=== PATIENT | female | born 2000 | race African-American/Black ===

== ENCOUNTER 2023-03-11 01:22 | Day surgery (SDC) | payer OTHER, SELFPAY ==
[2023-03-11] VITALS (32 sets, daily range): BP systolic 58–126; BP diastolic 43–76; PULSE 73–128; RESP 12–22; TEMP 36.3–36.9; O2SAT 89–100; BMI 20.7
--- NOTE | 2023-03-11 01:34 | ED.GENADULT ---
HPI - General Adult General Chief complaint: Abdominal Pain Stated complaint: right side abdominal pain Time Seen by Provider: 03/11/23 01:25 History of Present Illness HPI narrative: Rlowerabd pain. started 2200, nausea. painful to stand up straight. sharp , feels hot. denies urinary or BM problems. no hx surgeries. 22-year-old young woman presenting to the emergency department with complaint of rather sudden onset of right lower abdominal area pain, sharp, beginning 2-3 hours ago when getting ready for bed. She recalls that maybe she has had a similar pain before but not nearly as bad. Initially nauseated it feels better now. She tried to have a bowel movement as if that might relieve it but no change. No dysuria frequency or urgency though admittedly has not tried to urinate since onset of this pain. No history of abdominal surgeries. No fever. She would anticipate menses in a little over a week having had her last this last month. She is wondering how she can feel better noting that she has class in the morning. Related Data Home Medications Medication Instructions Recorded Confirmed No Known Home Medications 03/11/23 03/11/23 Allergies Allergy/AdvReac Type Severity Reaction Status Date / Time No Known Drug Allergies Allergy Verified 03/11/23 01:32 Review of Systems Status of ROS: Reports: 6 or more systems reviewed and unremarkable except as noted in History and below [facility] Medical History (Updated 03/11/23 @ 05:50 by Merlin Maritns MD) No significant past medical history Surgical History (Updated 03/11/23 @ 03:32 by Felix Marr RN) No significant past surgical history Social History Smoking Status: Never smoker Second hand tobacco smoke exposure: No How often do you have a drink containing alcohol: never How often do you have six or more drinks on one occasion: Never AUDIT-C Alcohol total score: 0 Non-prescribed substance use: denies use Exam Narrative: Exam Narrative: Scrape pleasant. Quiet. Clearly uncomfortable. Was observed to be walking hunched over into the emergency department. She is lying semi recumbent in the bed tipped over onto her right side somewhat. Little tremulous in apparent discomfort. Breathing easily otherwise however. Lungs appear to be clear. Heart in an elevated rate regular rhythm. Abdomen with normoactive bowel sounds is soft. She is tender across the pelvis most exquisitely in the right adnexal area not McBurney's. Also tender in the left and suprapubic area. Well-perfused peripherally without edema. Const: Vital Signs, click to edit/add: Vital Signs - 24 hr 03/11/23 10:05 03/11/23 13:56 03/11/23 14:05 Temperature 97.6 F Pulse Rate 89 128 H 105 H Pulse Rate [Left P ulse Oximeter] Respiratory Rate 12 20 22 Blood Pressure 102/65 112/50 L 109/62 Blood Pressure [Ri ght Arm] Pulse Oximetry 99 94 99 Oxygen Delivery Me thod Room Air OxyMask Oxygen Flow Rate 10 03/11/23 14:10 03/11/23 14:15 03/11/23 14:20 Temperature 97.4 F L Pulse Rate 94 95 94 Pulse Rate [Left P ulse Oximeter] Respiratory Rate 18 18 16 Blood Pressure 110/59 L 111/64 105/60 Blood Pressure [Ri ght Arm] Pulse Oximetry 99 100 97 Oxygen Delivery Me thod OxyMask OxyMask Room Air Oxygen Flow Rate 10 6 03/11/23 14:26 03/11/23 14:30 03/11/23 14:34 Temperature 97.3 F L Pulse Rate 96 108 H 98 Pulse Rate [Left P ulse Oximeter] Respiratory Rate 14 20 20 Blood Pressure 102/55 L 106/61 109/53 L Blood Pressure [Ri ght Arm] Pulse Oximetry 95 94 94 Oxygen Delivery Me thod Room Air Room Air Room Air Oxygen Flow Rate 03/11/23 15:00 03/11/23 15:15 03/11/23 15:30 Temperature 98.2 F 98.4 F Pulse Rate Pulse Rate [Left P ulse Oximeter] 97 88 94 Respiratory Rate 20 16 16 Blood Pressure Blood Pressure [Ri ght Arm] 104/55 L 107/54 L 94/61 Pulse Oximetry 89 96 95 Oxygen Delivery Me thod Room Air Room Air Room Air Oxygen Flow Rate 03/11/23 15:31 03/11/23 15:45 03/11/23 16:00 Temperature 98.2 F Pulse Rate 92 Pulse Rate [Left P ulse Oximeter] 86 76 Respiratory Rate 20 16 16 Blood Pressure Blood Pressure [Ri ght Arm] 104/66 102/53 L 102/52 L Pulse Oximetry 96 96 Oxygen Delivery Me thod Room Air Room Air Room Air Oxygen Flow Rate 03/11/23 16:30 03/11/23 17:00 03/11/23 18:00 Temperature Pulse Rate Pulse Rate [Left P ulse Oximeter] 99 92 89 Respiratory Rate 16 16 16 Blood Pressure Blood Pressure [Ri ght Arm] 103/45 L 124/65 124/72 Pulse Oximetry 99 99 99 Oxygen Delivery Me thod Room Air Room Air Room Air Oxygen Flow Rate 03/11/23 19:00 03/11/23 20:00 03/11/23 23:00 Temperature Pulse Rate Pulse Rate [Left P ulse Oximeter] 97 91 Respiratory Rate 16 16 16 Blood Pressure Blood Pressure [Ri ght Arm] 122/62 126/72 Pulse Oximetry 98 99 99 Oxygen Delivery Me thod Room Air Room Air Room Air Oxygen Flow Rate 03/12/23 00:08 03/12/23 03:00 03/12/23 07:00 Temperature 99.3 F 98.7 F Pulse Rate Pulse Rate [Left P ulse Oximeter] 94 98 101 H Respiratory Rate 18 16 18 Blood Pressure Blood Pressure [Ri ght Arm] 112/59 L 100/59 L Pulse Oximetry 99 98 Oxygen Delivery Me thod Room Air Room Air Oxygen Flow Rate 03/12/23 07:00 03/12/23 07:00 Temperature 99.4 F Pulse Rate Pulse Rate [Left P ulse Oximeter] 101 H Respiratory Rate 18 18 Blood Pressure Blood Pressure [Ri ght Arm] 110/62 Pulse Oximetry 99 99 Oxygen Delivery Me thod Room Air Room Air Oxygen Flow Rate Documenting provider has reviewed patient's vital signs: yes Course Vital Signs Vital signs: Initial Vital Signs Temperature 98.2 F 03/11/23 01:30 Temperature Source Temporal Artery Scan 03/11/23 01:30 Pulse Rate 97 03/11/23 01:30 Respiratory Rate 18 03/11/23 01:30 Blood Pressure 109/76 03/11/23 01:30 Blood Pressure Mean 87 03/11/23 01:30 Blood Pressure Position Sitting 03/11/23 01:30 Pulse Oximetry 99 03/11/23 01:30 Oxygen Delivery Method Room Air 03/11/23 01:30 Vital Signs Temperature 98.2 F 03/11/23 01:30 Pulse Rate 97 03/11/23 01:30 Respiratory Rate 18 03/11/23 01:30 Blood Pressure 109/76 03/11/23 01:30 Pulse Oximetry 99 03/11/23 01:30 Oxygen Delivery Method Room Air 03/11/23 01:30 Temperature 99.4 F 03/12/23 07:00 Pulse Rate 101 H 03/12/23 07:00 Respiratory Rate 18 03/12/23 07:00 Blood Pressure 110/62 03/12/23 07:00 Pulse Oximetry 99 03/12/23 07:00 Oxygen Delivery Method Room Air 03/12/23 07:00 Oxygen Flow Rate 6 03/11/23 14:15 Medical Decision Making MDM Narrative Medical decision making narrative: Top of the differential I think is ruptured ovarian cyst. Possibly cyst with torsion. Could be appendicitis but less likely. Mesenteric adenitis does not seem consistent with story. Ureteral colic and stone possible also but atypical story or presentation. Also question yet of ectopic . At this point will collect urine. IV will be established. Try to alleviate pain marked clear with morphine and given ketorolac. Pending labs would anticipate ultrasound. Labs are overall reassuring. Curiously with an AST of 90. Discussed ultrasound findings with litharge supervisor and then later with radiology. IMPRESSION: 1. The right ovary is markedly enlarged (6.6 x 4.5 x 5.2) cm when compared to the left. Additionally, hypoechoic right ovarian lesion which measures up to 1.9 cm. Differential for this includes corpus luteal cyst, ectopic , or collapsed hemorrhagic cyst. Normal arterial and venous blood flow is demonstrated in both ovaries which makes ovarian torsion felt unlikely. 2. Mild-moderate free fluid within the cul-de-sac which appears heterogenous concerning for blood products. 3. Thickened endometrium measures up to 1.56 cm. 4. Recommend OBGYN consult. Findings discussed with Dr. Merlin Martins at 5:18 a.m. Urine testing was negative. I favor hemorrhagic ovarian cyst. This was also discussed with OBGYN on-call. Anticipating close clinical follow-up. When tempted to mobilize for departure became vasovagal. Was allowed to rest but mobilizing again vasovagaled. IV was replaced. Given another L of normal saline and recheck hemoglobin/hematocrit. Hemoglobin has dropped from 12.4 to 9.6 and hematocrit from 38 to 30. Pressures remained a little soft as low as 89/43. I contacted again OBGYN. I cannot explain all this drop simply from 1 L of normal saline. I have some concerns about more brisk bleeding than suspected. Type and screen has been requested as well. Re-examining patient. She actually seems much more energized now. Blood pressure is 105/70s which I think is closer to baseline. Abdomen is still quite tender across the pelvis. Soft. Will be rechecking hemoglobin/hematocrit 1 more time I think. She has had 1 more L of fluid since the last check. I spoke with Dr. Brennan our OBGYN now on-call. Pending formal consult. 2 hours later another CBC was done. This showed hemoglobin had dropped by a little more than a g yet again. She had received another L of normal saline over that time. Understandably consultation recommending admission for further trend verses laparoscopy. Patient has been reluctant to stay regardless; has continued to express that she has classes to attend. I did return to speak with her again. I would favor surgical intervention as I think would Dr. Brennan. As I am speaking with [place], she states she is feeling hot, nauseated, begins vomiting. In further conversation I expressed my concern of this being a bad sign this vomiting and that her hemoglobin continues to trend down. Further that she would improve more quickly with surgical intervention. She agrees to proceed as recommended. Type and crossed for 2 units. Anticipating surgical intervention. Lab Data Lab results reviewed: Yes I reviewed the patient's lab results Labs: Lab Results 03/11/23 03/11/23 03/11/23 Range/Units 02:00 03:00 06:45 WBC 7.80 6.89 (4.50-11.00) K/uL RBC 4.16 3.22 L (4.00-5.20) m/uL Hgb 12.4 9.6 L (12.0-16.0) gm/dL Hct 38.6 30.2 L (33.0-51.0) % MCV 93 94 (80-100) fL MCH 30 30 (26-34) pg MCHC 32 32 (32-36) gm/dL RDW Coeff of Tonya 13.1 13.1 (11.5-15.5) % Plt Count 249 204 (140-440) K/uL Neut % (Auto) 70.4 67.1 (42.0-72.0) % Lymph % (Auto) 23.2 25.0 (20-44) % [place] % (Auto) 5.6 6.8 (0.0-11.0) % Eos % (Auto) 0.4 0.1 (0.0-7.0) % Baso % (Auto) 0.3 0.1 (0.0-3.0) % Neut # (Auto) 5.49 4.62 (1.7-7.0) K/uL Lymph # (Auto) 1.81 1.72 (0.90-2.90) K/uL [place] # (Auto) 0.40 0.50 (0.00-0.90) K/UL Eos # (Auto) 0.03 0.01 (0.00-0.50) K/uL Baso # (Auto) 0.02 0.01 (0.00-0.30) K/uL Abs Immat Gran (auto) 0.01 0.06 (0.00-0.30) K/uL Imm/Tot Granulo (auto) 0.1 0.9 % Sodium 138 (135-149) mmol/L Potassium 3.7 (3.6-5.1) mmol/L Chloride 104 (96-114) mmol/L Carbon Dioxide 25 (20-32) mmol/L Anion Gap 9 (7-15) mEq/L BUN 17 (5-24) mg/dL Creatinine 0.8 (0.5-1.5) mg/dL Estimated Creat Clear 90.47 Estimated GFR 106 ml/min Glucose 102 (60-115) mg/dL Calcium 9.3 (8.4-10.6) mg/dL Total Bilirubin 0.4 (0.1-1.5) mg/dL Direct Bilirubin 0.0 (0.0-0.5) mg/dL AST 90 H (12-35) U/L ALT 29 (4-35) U/L Alkaline Phosphatase 30 L (40-150) U/L C-Reactive Protein < 0.5 L (0.5-1.0) mg/dL Total Protein 7.4 (6.0-8.3) g/dL Albumin 4.4 (3.3-5.0) g/dL Urine Color Yellow (Yellow) Urine Appearance Clear (Clear) Urine pH 6.5 (5.0-8.5) Ur Specific [place] >= 1.030 (1.000-1.030) Urine Protein Negative (Negative) Urine Glucose (UA) Negative (Negative) Urine Ketones 3+ A (Negative) Urine Blood Negative (Negative) Urine Nitrite Negative (Negative) Urine Bilirubin Negative (Negative) Urine Urobilinogen 0.2 (0.2-1.0) Ur Leukocyte Esterase Negative (Negative) Urine RBC 0-2 (0-2) Urine WBC 0-2 (0-5) Ur Squamous Epith Cells Few (None-Few) Urine Bacteria None (None) Urine Mucus Moderate A (None) Urine HCG, Qual Negative (Negative) Blood Type Antibody Screen Crossmatch (AHG) 03/11/23 03/11/23 03/11/23 Range/Units 07:45 09:15 14:23 WBC 7.33 (4.50-11.00) K/uL RBC 2.88 L (4.00-5.20) m/uL Hgb 8.7 L 10.2 L (12.0-16.0) gm/dL Hct 26.9 L (33.0-51.0) % MCV 93 (80-100) fL MCH 30 (26-34) pg MCHC 32 (32-36) gm/dL RDW Coeff of Tonya 13.2 (11.5-15.5) % Plt Count 196 (140-440) K/uL Neut % (Auto) 79.0 H (42.0-72.0) % Lymph % (Auto) 15.3 L (20-44) % [place] % (Auto) 5.5 (0.0-11.0) % Eos % (Auto) 0.0 (0.0-7.0) % Baso % (Auto) 0.1 (0.0-3.0) % Neut # (Auto) 5.80 (1.7-7.0) K/uL Lymph # (Auto) 1.10 (0.90-2.90) K/uL [place] # (Auto) 0.40 (0.00-0.90) K/UL Eos # (Auto) 0.00 (0.00-0.50) K/uL Baso # (Auto) 0.01 (0.00-0.30) K/uL Abs Immat Gran (auto) 0.01 (0.00-0.30) K/uL Imm/Tot Granulo (auto) 0.1 % Sodium (135-149) mmol/L Potassium (3.6-5.1) mmol/L Chloride (96-114) mmol/L Carbon Dioxide (20-32) mmol/L Anion Gap (7-15) mEq/L BUN (5-24) mg/dL Creatinine (0.5-1.5) mg/dL Estimated Creat Clear Estimated GFR ml/min Glucose (60-115) mg/dL Calcium (8.4-10.6) mg/dL Total Bilirubin (0.1-1.5) mg/dL Direct Bilirubin (0.0-0.5) mg/dL AST (12-35) U/L ALT (4-35) U/L Alkaline Phosphatase (40-150) U/L C-Reactive Protein (0.5-1.0) mg/dL Total Protein (6.0-8.3) g/dL Albumin (3.3-5.0) g/dL Urine Color (Yellow) Urine Appearance (Clear) Urine pH (5.0-8.5) Ur Specific [place] (1.000-1.030) Urine Protein (Negative) Urine Glucose (UA) (Negative) Urine Ketones (Negative) Urine Blood (Negative) Urine Nitrite (Negative) Urine Bilirubin (Negative) Urine Urobilinogen (0.2-1.0) Ur Leukocyte Esterase (Negative) Urine RBC (0-2) Urine WBC (0-5) Ur Squamous Epith Cells (None-Few) Urine Bacteria (None) Urine Mucus (None) Urine HCG, Qual (Negative) Blood Type A Positive Antibody Screen NEGATIVE Crossmatch (AHG) See Detail 03/12/23 Range/Units 06:14 WBC 9.55 (4.50-11.00) K/uL RBC 2.72 L (4.00-5.20) m/uL Hgb 8.2 L (12.0-16.0) gm/dL Hct 25.3 L (33.0-51.0) % MCV 93 (80-100) fL MCH 30 (26-34) pg MCHC 32 (32-36) gm/dL RDW Coeff of Tonya 13.4 (11.5-15.5) % Plt Count 221 (140-440) K/uL Neut % (Auto) 69.3 (42.0-72.0) % Lymph % (Auto) 23.0 (20-44) % [place] % (Auto) 7.3 (0.0-11.0) % Eos % (Auto) 0.1 (0.0-7.0) % Baso % (Auto) 0.2 (0.0-3.0) % Neut # (Auto) 6.61 (1.7-7.0) K/uL Lymph # (Auto) 2.20 (0.90-2.90) K/uL [place] # (Auto) 0.70 (0.00-0.90) K/UL Eos # (Auto) 0.01 (0.00-0.50) K/uL Baso # (Auto) 0.02 (0.00-0.30) K/uL Abs Immat Gran (auto) 0.01 (0.00-0.30) K/uL Imm/Tot Granulo (auto) 0.1 % Sodium (135-149) mmol/L Potassium (3.6-5.1) mmol/L Chloride (96-114) mmol/L Carbon Dioxide (20-32) mmol/L Anion Gap (7-15) mEq/L BUN (5-24) mg/dL Creatinine (0.5-1.5) mg/dL Estimated Creat Clear Estimated GFR ml/min Glucose (60-115) mg/dL Calcium (8.4-10.6) mg/dL Total Bilirubin (0.1-1.5) mg/dL Direct Bilirubin (0.0-0.5) mg/dL AST (12-35) U/L ALT (4-35) U/L Alkaline Phosphatase (40-150) U/L C-Reactive Protein (0.5-1.0) mg/dL Total Protein (6.0-8.3) g/dL Albumin (3.3-5.0) g/dL Urine Color (Yellow) Urine Appearance (Clear) Urine pH (5.0-8.5) Ur Specific [place] (1.000-1.030) Urine Protein (Negative) Urine Glucose (UA) (Negative) Urine Ketones (Negative) Urine Blood (Negative) Urine Nitrite (Negative) Urine Bilirubin (Negative) Urine Urobilinogen (0.2-1.0) Ur Leukocyte Esterase (Negative) Urine RBC (0-2) Urine WBC (0-5) Ur Squamous Epith Cells (None-Few) Urine Bacteria (None) Urine Mucus (None) Urine HCG, Qual (Negative) Blood Type Antibody Screen Crossmatch (AHG) Critical Care Time Critical Care Time Critical Care Time: Yes Attestation: The patient required my highest level preparedness to intervene emergently and I personally spent this critical care time directly and personally managing the patient. This critical care time included: Obtaining a history; Examining the patient; Pulse oximetry; Ordering and reviewing of studies; Arranging urgent treatment with development of a management plan; Evaluation of patients response to treatment; Frequent reassessment discussions with other providers. This critical care time was performed to assess and manage the high probability of imminent life-threatening deterioration that could result in multiorgan failure. It was exclusive of separate billable procedures and treating other patients and teaching time. Total Critical Care Time in Minutes: 50 Discharge Plan Discharge Clinical Impression: Hemorrhagic cyst of right ovary, Abdominal pain Patient Disposition: XFER to OR Condition: Guarded
[2023-03-11] MEDS: KETOROLAC 30 MG/ML inj IVP (02:04)
[2023-03-11] MEDS: 0.9 % SODIUM CHLORIDE 1000 ml 1,000 ML 2000 ML IV ×2 (02:04→06:47)
[2023-03-11] MEDS: MORPHINE 4 MG/ML INJ IVP (02:04)
[2023-03-11 02:12] LABS: Basophils Absolute Auto 0.02 K/uL (0.00-0.30); Basophils Percent Auto 0.3 % (0.0-3.0); Eosinophils Absolute Auto 0.03 K/uL (0.00-0.50); Eosinophils Percent Auto 0.4 % (0.0-7.0); Hematocrit 38.6 % (33.0-51.0); Hemoglobin* 12.4 gm/dL (12.0-16.0); Immature Granulocytes Abs Auto 0.01 K/uL (0.00-0.30); Immature Granulocytes Pct Auto 0.1 %; Lymphocytes Absolute Auto 1.81 K/uL (0.90-2.90); Lymphocytes Percent Auto 23.2 % (20-44); Mean Corpuscular HGB Conc 32 gm/dL (32-36); Mean Corpuscular Hemoglobin 30 pg (26-34); Mean Corpuscular Volume 93 fL (80-100); Monocytes Percent Auto 5.6 % (0.0-11.0); Neutrophils Absolute Auto 5.49 K/uL (1.7-7.0); Neutrophils Percent Auto 70.4 % (42.0-72.0); Platelet Count* 249 K/uL (140-440); RDW Coefficient of Variation % 13.1 % (11.5-15.5); Red Blood Count 4.16 m/uL (4.00-5.20)
[2023-03-11 02:13] LABS: Slide Review Reflex No
[2023-03-11 02:19] LABS: Albumin* 4.4 g/dL (3.3-5.0)
[2023-03-11 02:20] LABS: Chloride* 104 mmol/L (96-114); Potassium* 3.7 mmol/L (3.6-5.1); Sodium* 138 mmol/L (135-149)
[2023-03-11 02:22] LABS: Aspartate Amino Transferase* 90 U/L (12-35); Bilirubin Total* 0.4 mg/dL (0.1-1.5); Total Protein* 7.4 g/dL (6.0-8.3)
[2023-03-11 02:23] LABS: Alanine Aminotransferase* 29 U/L (4-35); Alkaline Phosphatase* 30 U/L (40-150); Creatinine* 0.8 mg/dL (0.5-1.5); Est. Creatinine Clearance* 90.47; Estimated Glomerular Filt Rate 106 ml/min
[2023-03-11 02:24] LABS: Anion Gap 9 mEq/L (7-15); Blood Urea Nitrogen* 17 mg/dL (5-24); Calcium* 9.3 mg/dL (8.4-10.6); Carbon Dioxide* 25 mmol/L (20-32); Glucose* 102 mg/dL (60-115)
[2023-03-11 02:28] LABS: C Reactive Protein* < 0.5 mg/dL (0.5-1.0)
[2023-03-11 03:08] LABS: Appearance Urine Clear (Clear); Bilirubin Urine Negative (Negative); Blood Urine Negative (Negative); Color Urine Yellow (Yellow); Glucose Urine Negative (Negative); Ketones Urine 3+ (Negative); Leukocyte Esterase Urine Negative (Negative); Nitrite Urine Negative (Negative); Protein Urine Negative (Negative); Specific Gravity Urine >= 1.030 (1.000-1.030); Urobilinogen Urine 0.2 (0.2-1.0); pH Urine 6.5 (5.0-8.5)
[2023-03-11 03:14] LABS: Mucus Urine Moderate; RBC Urine 0-2 (0-2); Squamous Epithelial Cell Urine Few (None-Few); WBC Urine 0-2 (0-5)
[2023-03-11 03:15] LABS: Ur HCG Qualitative* Negative (Negative)
--- NOTE | 2023-03-11 03:17 | CRLHL7_ITS ---
For Patients: As a result of the Century Cures Act, medical imaging exams and procedure reports are released immediately into your electronic medical record. You may view this report before your referring provider. If you have questions, please contact your health care provider. INDICATION: RLQ PAIN TECHNIQUE: Ultrasound pelvis transvaginal for better assessment or to better visualize the endometrium. Real-time sonographic images with spectral and color Doppler imaging of the ovaries were obtained. COMPARISON: None. FINDINGS: Uterus: 6.5 x 6.5 cm in transverse by cc. Longitudinal measurements were not obtained. Normal echotexture of the myometrium. No masses. Endometrium: Transvaginal imaging was performed to better evaluate the endometrium. Thickened endometrium, measures 1.56 cm. No sign of endometrial mass or fluid. Right ovary measures 6.6 x 4.5 x 5.2 cm and left ovary measures 3.3 x 2.5 x 3.1 cm. Hypoechoic right ovarian lesion measuring 1.9 x 1.5 x 1.6 cm. Normal arterial and venous blood flow is demonstrated in both ovaries. Cul-de-sac: Mild-moderate free fluid which appears heterogenous. IMPRESSION: 1. The right ovary is markedly enlarged (6.6 x 4.5 x 5.2) cm when compared to the left. Additionally, hypoechoic right ovarian lesion which measures up to 1.9 cm. Differential for this includes corpus luteal cyst, ectopic , or collapsed hemorrhagic cyst. Normal arterial and venous blood flow is demonstrated in both ovaries which makes ovarian torsion felt unlikely. 2. Mild-moderate free fluid within the cul-de-sac which appears heterogenous concerning for blood products. 3. Thickened endometrium measures up to 1.56 cm. 4. Recommend OBGYN consult. Findings discussed with Dr. Merlin Martins at 5:18 a.m. Dictated by Roosevelt Nava MD @ 03/11/2023 5:19:37 AM (Electronically Signed)
--- NOTE | 2023-03-11 06:38 | ED.NURSE ---
patient attempted to get up at 0550 for discharge, pt syncope., pt let rest in bed until 0630, pt states she felt good and ready to go, slowly move from lay to sit, sat for a couple minutes, then stood. orthostatics charted.
[2023-03-11 07:14] LABS: Basophils Absolute Auto 0.01 K/uL (0.00-0.30); Basophils Percent Auto 0.1 % (0.0-3.0); Eosinophils Absolute Auto 0.01 K/uL (0.00-0.50); Eosinophils Percent Auto 0.1 % (0.0-7.0); Hematocrit 30.2 % (33.0-51.0); Hemoglobin* 9.6 gm/dL (12.0-16.0); Immature Granulocytes Abs Auto 0.06 K/uL (0.00-0.30); Immature Granulocytes Pct Auto 0.9 %; Lymphocytes Absolute Auto 1.72 K/uL (0.90-2.90); Mean Corpuscular HGB Conc 32 gm/dL (32-36); Mean Corpuscular Hemoglobin 30 pg (26-34); Mean Corpuscular Volume 94 fL (80-100); Monocytes Percent Auto 6.8 % (0.0-11.0); Neutrophils Absolute Auto 4.62 K/uL (1.7-7.0); Neutrophils Percent Auto 67.1 % (42.0-72.0); Platelet Count* 204 K/uL (140-440); RDW Coefficient of Variation % 13.1 % (11.5-15.5); Red Blood Count 3.22 m/uL (4.00-5.20); White Blood Count* 6.89 K/uL (4.50-11.00)
[2023-03-11 07:15] LABS: Slide Review Reflex No
[2023-03-11 09:32] LABS: Basophils Absolute Auto 0.01 K/uL (0.00-0.30); Basophils Percent Auto 0.1 % (0.0-3.0); Hematocrit 26.9 % (33.0-51.0); Hemoglobin* 8.7 gm/dL (12.0-16.0); Immature Granulocytes Abs Auto 0.01 K/uL (0.00-0.30); Immature Granulocytes Pct Auto 0.1 %; Lymphocytes Percent Auto 15.3 % (20-44); Mean Corpuscular HGB Conc 32 gm/dL (32-36); Mean Corpuscular Hemoglobin 30 pg (26-34); Mean Corpuscular Volume 93 fL (80-100); Monocytes Percent Auto 5.5 % (0.0-11.0); Platelet Count* 196 K/uL (140-440); RDW Coefficient of Variation % 13.2 % (11.5-15.5); Red Blood Count 2.88 m/uL (4.00-5.20); White Blood Count* 7.33 K/uL (4.50-11.00)
[2023-03-11 09:36] LABS: Slide Review Reflex No
[2023-03-11] MEDS: ONDANSETRON 2 MG/ML inj 4 MG IVP (10:02)
[2023-03-11] MEDS: LACTATED RINGERS 1000 ML 1,000 ML IV (10:16)
[2023-03-11] MEDS: TRANEXAMIC ACID 1,000 MG in 0.9 % SODIUM CHLORIDE 100 ml 100 ML 440 MG IVPB (10:32)
--- NOTE | 2023-03-11 10:36 | P.GYNCN_ITS ---
DIGITAL CAMERA TECHNICIAN - CN: HPI Data of Consult Time Seen by Provider: 09:00 Date Seen: 03/11/23 Patient: Other Requesting Physician: Dr. Merlin Martins Primary Care Provider: Not a Local Provider Consult Narrative Narrative: Adelfo Sanabria is a 22 year old female G0 who presented to the ED at around 0100 due to sudden, sharp right lower abdominal pain that cause her not to be able to stand up straight and making her nauseous. She was evaluated by Dr. Ventura, given pain medication, and TVUS was obtained. TVUS on 03/11/2023 1. The right ovary is markedly enlarged (6.6 x 4.5 x 5.2) cm when compared to the left. Additionally, hypoechoic right ovarian lesion which measures up to 1.9 cm. Differential for this includes corpus luteal cyst, ectopic , or collapsed hemorrhagic cyst. Normal arterial and venous blood flow is demonstrated in both ovaries which makes ovarian torsion felt unlikely. 2. Mild-moderate free fluid within the cul-de-sac which appears heterogenous concerning for blood products. 3. Thickened endometrium measures up to 1.56 cm. This was discussed with my partner, Dr. Bingham who was liaison inspection laboratory assistant. Plan was made to for pain control and close interval follow up given that she had improvement with pain medication and her Hgb at the time was 12.4. Around 0630 patient was woken up to coordinate discharge and she had a vasovagal episode. Another CBC was drawn and Hgb had dropped down to 9.6. Patient was resuscitated with IV fluids, had improvement and I was consulted to assess the patient. Upon arrival, patient appear fatigued but comfortable in bed. She is mentating well and is expressing that she feels significantly better after IV fluids. My abdominal exam was concerning for mild distension and continued guarding on light palpation at the left lower quadrant I discussed with her my concern for her hgb drop and that there appears to be clots in her abdomen on TVUS. I explained to her that I believe she has a ruptured hemorrhagic cyst and is now having intra-abdominal bleeding. I strongly recommended surgical exploration given her hemoglobin drop, vasovagal episode, continued abdominal pain, and the ultrasound findings. Patient was initially alarmed by this and did not want surgery. She was very concern about miss her classes. She is a senior at [employer] and very studious. She initially insisted on leaving and promised she'll followup in clinic sometime this week. I discussed with her that I did not feel that it was safe for her leave and do expectant management outside of the hospital. At the very least, I would recommend she be admitted overnight for observation. Again she is insistent about going home. I asked her to ambulate for me to see how she feels with ambulation. She was able to walk straight reports that pain is manageable. I discussed with Dr. Ventura that I would at recommend inpatient observation with serial vitals/labs if she is refusing surgery. Shortly, after that he informed me that she starting feeling terrible after ambulating and had an episode of emesis. She is now amenable to surgical management. She reports she has regular menses, Q28 days lasting for 5-6 days. Moderate amount of flow but can have pretty severe dysmenorrhea at times, not with every cycle. Currently, patient denies fever, chills, chest pain, SOB, or headache. cc:: CC: Review of Systems Status of ROS: Reports: 6 or more systems reviewed and unremarkable except as noted in History and below [facility] Medical History (Updated 03/11/23 @ 05:50 by Merlin Martins MD) No significant past medical history Surgical History (Updated 03/11/23 @ 03:32 by Felix Marr RN) No significant past surgical history Social History Smoking Status: Never smoker Second hand tobacco smoke exposure: No How often do you have a drink containing alcohol: never How often do you have six or more drinks on one occasion: Never AUDIT-C Alcohol total score: 0 Non-prescribed substance use: denies use Meds Home Medications and Allergies Home Medications Medication Instructions Recorded Confirmed Type No Known Home Medications 03/11/23 03/11/23 History Allergies Allergy/AdvReac Type Severity Reaction Status Date / Time No Known Drug Allergies Allergy Verified 03/11/23 01:32 DIGITAL CAMERA TECHNICIAN - Exam Physical Exam: Vital signs: Temp Pulse Resp BP Pulse Ox O2 Del Method 98.4 F 103 H 18 103/63 97 Room Air 03/11/23 05:50 03/11/23 07:25 03/11/23 05:50 03/11/23 07:25 03/11/23 06:41 03/11/23 05:50 Narrative: Physical exam: General: Fatigued appearnig. No acute distress Psych: Alert and oriented x3, full affect HEENT: Normocephalic, atraumatic Neck: No cervical adenopathy, no thyromegaly Lungs: Unlabored breathing Abdomen: Tenderness to light palpation especially on RLQ, no rebound but + guarding. Mild distension noted. Lower extremities: No edema or erythema Pelvic exam: Deferred DIGITAL CAMERA TECHNICIAN - Results Labs Labs: Short CBC 03/11/23 03/11/23 03/11/23 Range/Units 02:00 06:45 09:15 WBC 7.80 6.89 7.33 (4.50-11.00) K/uL Hgb 12.4 9.6 L 8.7 L (12.0-16.0) gm/dL Hct 38.6 30.2 L 26.9 L (33.0-51.0) % Plt Count 249 204 196 (140-440) K/uL BMP 03/11/23 02:00 Sodium 138 Potassium 3.7 Chloride 104 Carbon Dioxide 25 BUN 17 Creatinine 0.8 Glucose 102 Calcium 9.3 Liver Function 03/11/23 Range/Units 02:00 Total Bilirubin 0.4 (0.1-1.5) mg/dL Direct Bilirubin 0.0 (0.0-0.5) mg/dL AST 90 H (12-35) U/L ALT 29 (4-35) U/L Alkaline Phosphatase 30 L (40-150) U/L Albumin 4.4 (3.3-5.0) g/dL Urine 03/11/23 Range/Units 03:00 Urine Color Yellow (Yellow) Urine Appearance Clear (Clear) Urine pH 6.5 (5.0-8.5) Ur Specific [place] >= 1.030 (1.000-1.030) Urine Protein Negative (Negative) Urine Glucose (UA) Negative (Negative) Assessment and Plan Assessment and plan (1) Hemorrhagic cyst of right ovary: Status: Acute Plan - Upendo consented for surgical exploration of the abdomen due to ruptured hemorrhagic cyst of the right ovary: diagnostic laparoscopy, right ovarian cystectomy, possible right oophorectomy, and all other indicated procedure. - We also discussed risk of laparoscopic surgery including pain, bleeding, infection, and damages to the surrounding structures of the operative site. Patient had concerns about her future fertility if she were to lose her right ovary. I discussed with Upendo that my intention is to preserve both of her ovaries and do the cystectomy only. However, there's always a risk of needing to do an oophorectomy if she is having uncontrolled bleeding or if the cyst overtaken her entire ovarian stroma and I cannot delineate a plane. I assured her that even if she did have a unilateral oophorectomy, she will still retain her fertility. After counseling patient would like to proceed with emergency surgery. - Hgb/ plt: 8.7/ 196 - T&C for 2 u of pRBC
--- NOTE | 2023-03-11 10:37 | P.GYNPRC_ITS ---
Procedure Note Time Seen by Provider: 12:00 Date of procedure: 03/11/23 Procedure Description: Preoperative diagnosis: 22-year-old, G0 with ruptured right hemorrhagic ovarian cyst. Postoperative diagnosis: Approximately 600 cc of hemoperitoneum and ruptured right hemorrhagic corpus luteum cyst Procedure: Diagnostic laparoscopy, right ovarian cystectomy Anesthesia: General endotracheal Surgeon: Taryn Brennan MD User Experience Developer: None EBL: 600 cc hemoperitoneum upon entry into the abdomen. 20 cc from cystectomy. Urine output: 50 mL clear urine IVF: 2L Specimen: Right hemorrhagic corpus luteum cyst. Findings: On exam under anesthesia: Normal external genitalia, vaginal vault, and cervix. The uterus was anterior, 5 week size, mobile, without masses or nodularity palpable. Lower abdominal distension noted. On laparoscopy: Large volume hemoperitoneum noted immediately upon entry into the abdomen. Large amount of clots in posterior cul-de-sac. The uterus, left fallopian tube, and left ovary were normal. Right ovary was noted to have a 4-5 cm ruptured corpus luteum cyst. Right fallopian tube normal in appearance. Cyst mobile and well circumscribed with active bleeding. Liver and appendix normal appearing. Procedure: Patient was taken to the operating room where general anesthetic was found to be adequate. She was placed in the dorsal lithotomy position and an exam under anesthesia was performed with findings stated above. She was then prepped and draped in a normal sterile manner. Her bladder was emptied with a straight catheter and sponge stick was placed vaginally to act as uterine manipulator. Attention was then turned to performing the laparoscopic portion of the procedure. All incisions were injected with 0.5% Marcaine with epinephrine prior to incision. A vertical 12 mm infraumbilical, incision was made and a 11 mm trocar placed via Joan method under direct visualization as patient fascia felt taut and unable to enter after two attempts with the 5 mm Fios Kii trocar. Upon entry into the abdomen, copious amount of blood expressed through the incision site. The abdomen was then insufflated with carbon dioxide gas to a pressure of 15 mm of mercury. Two left 5 mm trocars were placed under direct visualization. One was placed 3-4 finger breaths medial to the ischial crests and a 2nd was placed hands breath medial and 3 cm superior to lower quadrant port. A diagnostic laparoscopy was then performed with findings stated above. Ligasure and soft jaw grasper were used to dissect the ovarian tissue off the cyst. Right corpus luteum cyst was removed through left lower quadrant port. Hemostasis was achieved with monopolar energy on the exposed ovarian surface. After that, suction forms analysis manager and grasper were used to remove all the blood and clots from the patient's abdomen. After the majority of clot and blood was removed from the pelvis, Chani was applied to the exposed ovarian surface. Excellent hemostasis was noted at low pressure. The patient was taken out of Trendelenburg. The CO2 gas was allowed to escape the infraumbilical port and it was removed. Again, copious amount of blood was expressed through the umbilical port. Stat hgb was obtained intraoperatively due to volume of the blood in her abdomen. Infraumbilical trocar was reinserted and abdomen was insufflated to a pressure of 15 mmHg. Complete abdomen survey was undertaken again. Reaccumulation of blood in the pelvis from upper abdomen was noted but no additional bleeding was discovered. Suction forms analysis manager used to evacuate the rest of the blood. The trocars were removed under direct visualization. The CO2 gas was allowed to escape the infraumbilical port and it was removed again. Fascial at the umbilical port was closed with 0-vicryl in running continuous fashion. Subcutaneous closure with 2-0 chromic. The skin was reapproximated with 3-0 Vicryl. Two other incisions were reapproximated using 4-0 Monocryl in a running subcuticular manner. LiquiBand skin adhesive was then applied and adhesive dressings applied over each incision. The uterine manipulator was removed from the vaginal. The patient tolerated this procedure well. Sponge, lap and instrument counts were correct x2 at the end of the procedure and the patient was taken to the recovery area in stable condition.
--- NOTE | 2023-03-11 10:59 | W.ANESCHARGE ---
Anesthesia Charges Start Date/Time Anesthesia Start Date: 03/11/23 Anesthesia Start Time: 11:03 Stop Date/Time Anesthesia Stop Date: 03/11/23 Anesthesia Stop Time: 14:00 Summary Emergency: MDA
[2023-03-11] MEDS: LACTATED RINGERS 1000 ML 1,000 ML 75 ML IV ×2 (11:08→11:48)
[2023-03-11] MEDS: BUPIVACAINE 0.5 %/EPI 1:200K 30 ML INJECTION (12:05)
[2023-03-11] MEDS: MEPERIDINE 25 MG/ML INJ 12.5 MG IVP (14:00)
[2023-03-11 14:28] LABS: Hemoglobin* 10.2 gm/dL (12.0-16.0)
--- NOTE | 2023-03-11 14:49 | W.ANESCHARGE ---
Anesthesia Charges Start Date/Time Anesthesia Start Date: 03/11/23 Anesthesia Start Time: 11:03 Stop Date/Time Anesthesia Stop Date: 03/11/23 Anesthesia Stop Time: 14:00 Summary Emergency: [facility]
--- NOTE | 2023-03-11 23:25 | PC.NURSE ---
Shift [id number]- Patient denies pain throughout shift. Lap site to left abdomen with scant amount of blood, open to air. She also has a small amount of vaginal bleeding. She states understanding to alert us if bleeding becomes very increased, has large clots, or has an increase of pain. She is tolerating regular diet, is up ad suleiman, is saline locked per MD order. She is voiding. She notes that she feels like she has generalized swelling- is given education on 3rd spacing.
[2023-03-12 00:08] VITALS: BP 112/59; PULSE 94; RESP 18; TEMP 37.4; O2SAT 99
[2023-03-12 03:00] VITALS: BP 100/59; PULSE 98; RESP 16; TEMP 37.1; O2SAT 98
[2023-03-12] MEDS: ACETAMINOPHEN 325 MG TABLET 650 MG PO ×2 (06:02→12:57)
--- NOTE | 2023-03-12 06:40 | PC.NURSE ---
End of shift: A&O pleasant and cooperative. Pt afebrile. Denies n/v. Complains of pain when changing position or ambulating. PRN medication offered, pt declined. This morning pt complained of increasing abd pain. See eMAR for intervention. Lap sites are open to air w/out drainage. Bowel sounds active and pt able to pass gas. voiding. Ind in room.
[2023-03-12 06:46] LABS: Basophils Absolute Auto 0.02 K/uL (0.00-0.30); Basophils Percent Auto 0.2 % (0.0-3.0); Eosinophils Absolute Auto 0.01 K/uL (0.00-0.50); Eosinophils Percent Auto 0.1 % (0.0-7.0); Hematocrit 25.3 % (33.0-51.0); Hemoglobin* 8.2 gm/dL (12.0-16.0); Immature Granulocytes Abs Auto 0.01 K/uL (0.00-0.30); Immature Granulocytes Pct Auto 0.1 %; Mean Corpuscular HGB Conc 32 gm/dL (32-36); Mean Corpuscular Hemoglobin 30 pg (26-34); Mean Corpuscular Volume 93 fL (80-100); Monocytes Percent Auto 7.3 % (0.0-11.0); Neutrophils Absolute Auto 6.61 K/uL (1.7-7.0); Neutrophils Percent Auto 69.3 % (42.0-72.0); Platelet Count* 221 K/uL (140-440); RDW Coefficient of Variation % 13.4 % (11.5-15.5); Red Blood Count 2.72 m/uL (4.00-5.20); White Blood Count* 9.55 K/uL (4.50-11.00)
[2023-03-12 06:47] LABS: Slide Review Reflex No
[2023-03-12 07:00] VITALS: BP 110/62; PULSE 101; RESP 18; TEMP 37.4; O2SAT 99
[2023-03-12 10:35] VITALS: BP 123/65; PULSE 81; RESP 18; TEMP 37.4; O2SAT 100
[2023-03-12 12:50] VITALS: BP 111/63; PULSE 77; RESP 16; TEMP 37.2; O2SAT 100
[2023-03-12] MEDS: DOCUSATE SODIUM 100 MG CAPSULE PO (13:03)
--- NOTE | 2023-03-12 13:27 | P.DS_ITS ---
DS: Providers Provider Date Seen: 03/12/23 Primary care physician: Not a Local Provider Attending Physician on discharge: Chantell Sanchez MD Date of Discharge: 03/12/23 DS: Diagnosis Discharge Diagnosis (1) Hemorrhagic cyst of right ovary: Status: Acute (2) Hemoperitoneum: Status: Acute EXPERIMENTAL ELECTRONICS DEVELOPER-Discharge Summary Hospital Course Hospital Course Narrative: Adelfo is a 22-year-old G0 woman who presented to the ER with abdominal pain on 03/11/2023. She ultimately had a laparoscopic right ovarian cystectomy with evacuation of hemoperitoneum secondary to a ruptured right corpus luteum cyst. Laparoscopic findings were notable for 600 mL of hemoperitoneum upon entry into the abdomen. The suspected corpus luteum cyst was 4-5 cm in dimension. Other pelvic and intra-abdominal findings were normal. Her postoperative course has been smooth. Today, on postoperative day 1, she reports pain is acceptably controlled. She has been able to ambulate without difficulty. She did have an episode of pounding of her heart, but had normal vital signs at this time. EKG showed normal sinus rhythm. This sensation subsequently resolved, and is thought secondary to post hemorrhagic anemia. Her hemoglobin is 8.2 this morning. She has been able to tolerate a regular diet and had a bowel movement. She is urinating without difficulty. Vitals have been stable. She has remained afebrile. Time Spent with Patient Time attestation: Total time spent providing and/or coordinating discharge services: Time spent: Greater than 30 minutes EXPERIMENTAL ELECTRONICS DEVELOPER - Exam Physical Exam: Vital signs: Temp Pulse Resp BP Pulse Ox O2 Del Method O2 Flow Rate 98.9 F 77 16 111/63 100 Room Air 6 03/12/23 12:50 03/12/23 12:50 03/12/23 12:50 03/12/23 12:50 03/12/23 12:50 03/12/23 12:50 03/11/23 14:15 Narrative: General: Pleasant, no acute distress Heart: Regular rate and rhythm, no murmur or gallop Lungs: Clear to auscultation bilaterally Abdomen: Soft, appropriately tender, laparoscopic port sites clean, dry, and intact, voluntary guarding, no distension, normoactive bowel sounds in all 4 quadrants Lower extremities: No edema or erythema EXPERIMENTAL ELECTRONICS DEVELOPER - DS: Data Data Completed and Pending Labs on day of discharge: Labs from last 24 hours 03/12/23 03/11/23 06:14 14:23 WBC 9.55 RBC 2.72 L Hgb 8.2 L 10.2 L Hct 25.3 L MCV 93 MCH 30 MCHC 32 RDW Coeff of Tonya 13.4 Plt Count 221 Neut % (Auto) 69.3 Lymph % (Auto) 23.0 [place] % (Auto) 7.3 Eos % (Auto) 0.1 Baso % (Auto) 0.2 Neut # (Auto) 6.61 Lymph # (Auto) 2.20 [place] # (Auto) 0.70 Eos # (Auto) 0.01 Baso # (Auto) 0.02 Abs Immat Gran (auto) 0.01 Imm/Tot Granulo (auto) 0.1 Procedures Procedures: Procedures Operation Date: 03/11/23 10:45 Actual Procedure Side Surgeon p Radha Right Ovarian Cystectomy Right Taryn B MD Mika Complications: none Discharge Plan Discharge Disposition: Home, Self-Care Discharging Surgeon: Chantell Sanchez Follow-Up Appointment: 2 weeks Prescriptions: New acetaminophen 325 mg Tablet 650 mg PO Q4H PRN (Reason: minor pain) Qty: 0 0RF docusate sodium 100 mg Capsule 100 mg PO BID PRN (Reason: Constipation) Qty: 30 0RF oxycodone 5 mg Tablet 5 mg PO Q4H PRN (Reason: Moderate Pain) Qty: 20 0RF ibuprofen 600 mg tablet 600 mg PO Q6H PRNQty: 60 0RF ferrous sulfate 325 mg (65 mg iron) tablet 325 mg PO Q OTHER DAY Qty: 20 0RF Activity Detail: No lifting greater than 20 lbs for 4 weeks. Discharge Diet: Regular Patient Instructions: Surgical Site Infections (DC), Ruptured Ovarian Cyst (DC), Ovarian Cyst Removal (DC) Additional Instructions: Stay well-hydrated. Return otherwise for sudden increase in persistent and severe pain, fever, persistent vomiting. Forms: [facility]/School Release, [facility] Inst[facility] Follow-up: Provider,Not a Local [Primary Care Provider] - Lorene Bingham MD [Staff Physician] - 03/25/23 9:15 am ([facility] [place] for follow-up.) Discharge Orders: Discharge Order (Routine); Ordered 03/12/23 Ordered By: Chantell Sanchez
--- NOTE | 2023-03-12 13:27 | PC.NURSE ---
Patient independent with ambulation and toileting. Tolerated regular diet of fruit cup well. Upon sitting up at side of bed patient earlier this shift patient stated that she could hear her heartbeat and reported feeling dizzy. Dr Sanchez updated. EKG ordered showing NSR, vitals stable and WNL. Per MD waited a couple hours to DC. Patient up walking in halls x2 without difficulty or c/o hearing heartbeat or dizziness. Reported pain rated between 3-4/10. PRN Tylenol given this morning prior to shift change was effective. Patient declined PRN medication at 1200 when offered. At discharge patient reported pain in lower abdomen rated 4/10 and difficulty having BM. Patient reported very small BM this afternoon. PRN Tylenol at [place] given at 1300 prior to Discharge. Temp 99.4 this morning. Temp 98.9 at time of discharge. All other VS WNL. updated on improvment of symptoms. Ok for discharge. Patient discharged at 1325. Ambulated independently to ER with nurse Phipps. [facility] staff met patient in emergency to transport back to campus.
== END 2023-03-12 13:25 | disposition home or self-care (01) ==
LOC: ED 10:19 → SS 11:07 → MEDSURG 03-12 08:55
PROVIDERS: Emergency Provider Family Medicine; Visit Provider Obstetrics & Gynecology
PROC: (CPT 58662; principal; 2023-03-11 10:30)
DX: N83.11 Corpus luteum cyst of right ovary (principal); K66.1 Hemoperitoneum; R10.31 Right lower quadrant pain
CPT/HCPCS: 58662; 00840; 36415; 76830; 80048; 80076; 81001; 81025; 85018; 85025; 86140; 86850; 86900; 86901; 86922; 88305; 93005; 93976; 94761; 99140; 99284; 99291; A9270; J0330; J1170; J1885; J2175; J2250; J2270; J2371; J2405; J2704; J3010; J3490; J7030; J7120

== ENCOUNTER 2023-04-24 13:04 | Outpatient (CLI) | payer OTHER, SELFPAY | END 2023-04-24 13:05 | disposition home or self-care (01) | LOC: NFLDREF 13:05 | PROVIDERS: Visit Provider Obstetrics & Gynecology | DX: D64.9 Anemia, unspecified (principal) | CPT/HCPCS: 83540; 83550 ==

== ENCOUNTER 2024-06-17 09:42 | Outpatient (CLI) | payer OTHER, SELFPAY | END 2024-06-17 09:43 | disposition home or self-care (01) | PROVIDERS: Visit Provider Obstetrics & Gynecology | DX: D64.9 Anemia, unspecified (principal) | CPT/HCPCS: 83020; 83021; 83540; 83550; 85660 ==